=== PATIENT | female | born 1970 | race Caucasian/White ===

== ENCOUNTER → 2016-07-08 | Outpatient (CLI) | payer OTHER ==
[~2016-07-08] MED LIST: APIX5TAB PO; GABA300C5 PO; PERC7.5T13 PO; TRAZ100T4 PO; VIST25CA PO
[2016-07-08 12:10] LABS: MEAN CELL VOLUME 73.3 FL (80.0-100.0); MEAN CORPUSCULAR HGB CONC 31.4 % (32.0-36.0); PLATELET COUNT 227 TH/MM3 (150-450); RED BLOOD COUNT 5.33 MIL/MM3 (4.00-5.30); RED CELL DISTRIBUTION WIDTH 14.8 % (11.6-17.2); WHITE BLOOD COUNT 7.5 TH/MM3 (4.0-11.0)
[2016-07-08 12:12] LABS: REVIEW FLAG FINAL
[2016-07-08 12:20] LABS: INTERNATIONAL NORMALIZED RATIO 0.9 RATIO; PROTHROMBIN TIME - PATIENT 10.3 SEC (9.8-11.6)
[2016-07-08 12:37] LABS: BICARBONATE 29.6 MEQ/L (21.0-32.0); POTASSIUM 4.1 MEQ/L (3.5-5.1)
== END ==
LOC: CPRE 10:59
PROVIDERS: ATTEND Surgery
DX: Z01.812 Encounter for preprocedural laboratory examination (principal); M79.89 Other specified soft tissue disorders
CPT/HCPCS: 36415; 80048; 84703; 85027; 85610

== ENCOUNTER 2016-07-13 09:22 | Observation (INO) | payer OTHER ==
[~2016-07-13] VITALS: Ht 162.6 cm; Wt 85.1 kg
[2016-07-13] MEDS ORDERED: INSULIN HUMAN REGULAR 1,000 UNITS/10 ML VIAL SQ PRN (10:15)
[2016-07-13] MEDS ORDERED: METOPROLOL TARTRATE 25 MG TAB PO PRN (10:15)
[2016-07-13] MEDS ORDERED: LACTATED RINGER'S 1000 ML IV SCH (10:15)
[2016-07-13] MEDS ORDERED: SODIUM CHLORID 0.9% 500 ML IV SCH (10:15)
[2016-07-13] MEDS ORDERED: APIX5TAB PO (10:18)
[2016-07-13] MEDS ORDERED: GABA300C5 PO (10:18)
[2016-07-13] MEDS ORDERED: VIST25CA PO (10:18)
[2016-07-13] MEDS ORDERED: PERC7.5T13 PO (10:18)
[2016-07-13] MEDS ORDERED: TRAZ100T4 PO (10:18)
[2016-07-13 10:29] VITALS: BP 120/75; PULSE 57; RESP 16; TEMP 98.3; O2SAT 97
[2016-07-13] MEDS ORDERED: LACTATED RINGER'S 1000 ML INJ 1,000 ML IV ONE (12:00)
[2016-07-13] MEDS ORDERED: PROPOFOL 200 MG/20 ML AMP IV ONE (12:00)
[2016-07-13] MEDS ORDERED: NEOSTIGMINE 3 MG/3 ML SYR IV ONE (12:00)
[2016-07-13] MEDS ORDERED: PHENYLEPH/NS 1000 MCG/10 ML SYR IV ONE (12:00)
[2016-07-13] MEDS ORDERED: ONDANSETRON HCL 4 MG/2 ML VIAL IV PUSH ONE (12:00)
[2016-07-13] MEDS ORDERED: FAMOTIDINE 20 MG/2 ML VIAL ONE (12:36)
[2016-07-13] MEDS ORDERED: DEXAMETHASONE SOD PHOS 4 MG/ML VIAL ONE (12:36)
[2016-07-13] MEDS ORDERED: MIDAZOLAM HCL 2 MG/2 ML VIAL ONE ×2 (12:36→15:02)
--- NOTE | 2016-07-13 12:36 | HHI.HP ---
History of Present Illness Chief Complaint: R leg/thigh swelling History of Present Illness 46 yo female with h/o DVT who presents c/o intermittent R leg swelling having failed compression. she does not recall where her DVT was/were but she is still on anticoagulation and they were some time ago. She is otherwise healthy. Since I saw her in clinic, there has been no interval change in her medical record that would preclude surgery Past/Family/Social History Past Medical History DVT Past Surgical History RADHA nader tonsillectomy Social History Family History no hypercoagulable state Home Medications Reported Medications Oxycodone-Acetaminophen (Percocet)7.5-325 mg Tab1 Tab PO BID PRN (PAIN) Ref 0 07/13/16 Hydroxyzine Pamoate (Vistaril)25 Mg Cap25 Mg PO HS Ref 0 07/13/16 Gabapentin 300 Mg [id number] Mg PO HS Ref 0 07/13/16 Apixaban (Eliquis)5 Mg Tab5 Mg PO BID #60 TAB Ref 0 07/13/16 Trazodone 100 Mg [id number] Mg PO HS Ref 0 07/13/16 Coded Allergies: No Known Allergies (Unverified , 07/13/16) Review of Systems Constitutional: COMPLAINS OF: Weight gain, DENIES: Chills, Dizziness, Night Sweats Cardiovascular: COMPLAINS OF: Palpitations, Orthopnea, DENIES: Chest pain Gastrointestinal: COMPLAINS OF: Abdominal pain Physical Exam Vitals/I&O Date Time Temp Pulse Resp B/P Pulse Ox O2 Delivery O2 Flow Rate FiO2 07/13/16 10:29 98.3 57 16 120/75 97 Neuro: alert, [place], no focal deficits HEENT: NC/AT Anicteric sclera Neck: no JVD Heart: reg rate, no murmurs Lungs: CTAB Abdomen: soft, NT Vascular: palp pedal pulses Assessment and Plan Plan Outside CT suggestive of IVC occlusion, maybe R iliac occlusion To OR for venogram/PERCUSSION TUNER/stent Consent obtained and pt aware of risks. To OR. Jesus Fisher MD Jul 13, 2016 12:36
[2016-07-13] MEDS ORDERED: BUPIVACAINE/EPINEPHRINE 0.5% PF 30 ML VIAL ONE (12:37)
[2016-07-13] MEDS ORDERED: HEPARIN SODIUM - SQ 10,000 UNITS/ML VIAL ONE (12:37)
[2016-07-13] MEDS ORDERED: ceFAZolin 2 GM PREMIX 50 ML ONE (12:56)
[2016-07-13] MEDS ORDERED: ceFAZolin INJ 1,000 MG VIAL ONE (12:56)
[2016-07-13] MEDS ORDERED: IOHEXOL 300 MG/ML 50 ML BTL (for RAD DIAG) ONE (13:29)
--- NOTE | 2016-07-13 14:57 | HHI.PR ---
Immediate Post Op Note Procedure Date: Jul 13, 2016 Pre Op Diagnosis: R LE swelling, suspected IVC occlusion Post Op Diagnosis: IVC and R iliac vein occlusions Surgeon: Jesus Fisher Freight Router(s): none Procedure: 1. IVCavagram 2. IVUS 3. SYSTEMS SECURITY CONSULTANT of IVC (16mm) 4. SYSTEMS SECURITY CONSULTANT of R iliac vein (12mm) Findings: occluded IVC from mid R EIV to renal veins, able to recanalize and SYSTEMS SECURITY CONSULTANT no opacification of collaterals after recanalization/SYSTEMS SECURITY CONSULTANT Additional Information: 8F sheath removed in OR Complications: none Specimen(s) removed: none Estimated blood loss: 10 mL Anesthesia: General Drains: None Fluids: 400 mL IVF Patient to: PACU Patient Condition: Good Date/Time of Procedure: SEE SURGICAL CARE RECORD Jesus Fisher MD Jul 13, 2016 14:57
[2016-07-13] MEDS ORDERED: ENOXAPARIN SODIUM 80 MG/0.8 ML SYRINGE SQ SCH (15:00)
[2016-07-13] MEDS ORDERED: DO NOT ADM ANY ANTICOAGULANT DRUGS XX PRN (15:00)
[2016-07-13] MEDS ORDERED: fentaNYL CITRATE 250 MCG/5 ML AMP ONE (15:02)
[2016-07-13] MEDS ORDERED: *morphine SULFATE 8 MG/ML PERIprocedure ONLY ONE (15:15)
[2016-07-13] MEDS ORDERED: *HYDROmorphone PF 1 MG VIAL PERIprocedural Use ONLY ONE ×2 (15:22→16:40)
[2016-07-13] MEDS ORDERED: *diphenhydrAMINE HCL 50 MG/ML VIAL PERIprocedural Use ONLY ONE (15:22)
[2016-07-13] MEDS: oxyCODONE/ACETAMINOPHEN 7.5 MG/325 MG TAB PO PRN ×2 (18:00→22:56)
[2016-07-13] MEDS ORDERED: HYDROmorphone HCL PF 1 MG/ML VIAL ONE (19:14)
[2016-07-13 20:00] VITALS: BP 122/69; PULSE 58; RESP 16; TEMP 98; O2SAT 94
[2016-07-13] MEDS: APIXABAN 5 MG TABLET PO SCH (20:23)
[2016-07-13 21:00] VITALS: PULSE 60
[2016-07-13] MEDS ORDERED: traZODone HCL 100 MG TAB PO SCH (21:00)
[2016-07-13] MEDS ORDERED: hydrOXYzine PAMOATE 25 MG CAP PO SCH (21:00)
[2016-07-13] MEDS ORDERED: GABAPENTIN 300 MG CAP PO SCH (21:00)
[2016-07-13 22:00] VITALS: PULSE 68
[2016-07-13 23:00] VITALS: BP 104/64; PULSE 52; RESP 16; TEMP 97.7; O2SAT 94
[2016-07-14] VITALS (9 sets, daily range): BP systolic 103–126; BP diastolic 55–77; PULSE 44–67; RESP 16–18; TEMP 98–98.1; O2SAT 93–95
[2016-07-14] MEDS: oxyCODONE/ACETAMINOPHEN 7.5 MG/325 MG TAB PO PRN ×2 (03:50→10:13)
[2016-07-14] MEDS ORDERED: ONDANSETRON HCL 4 MG/2 ML VIAL IV PUSH ONE (09:15)
--- NOTE | 2016-07-14 09:18 | PD.VS.PN ---
Subjective POD #: 1 Procedure(s): IVC recanalization/BOILERMAKER SHIP of IVC and R CIV Subjective/Hospital Course Doing well overnight. mild abdominal pain but eased off overnight. Main complaint is sore throat Objective Vitals/I&O Date Time Temp Pulse Resp B/P Pulse Ox O2 Delivery O2 Flow Rate FiO2 07/14/16 08:05 98.0 54 18 103/55 95 07/14/16 07:17 50 07/14/16 06:00 45 07/14/16 05:00 52 07/14/16 04:00 67 07/14/16 03:00 54 07/14/16 03:00 98.1 50 16 126/77 93 07/14/16 02:00 47 07/14/16 01:00 44 07/13/16 23:00 97.7 52 16 104/64 94 07/13/16 22:00 68 07/13/16 21:00 60 07/13/16 20:00 58 07/13/16 20:00 98.0 58 16 122/69 94 07/13/16 19:33 97.9 56 12 109/68 98 Nasal Cannula 2 07/13/16 19:15 15 07/13/16 19:01 59 14 111/68 94 Nasal Cannula 2 07/13/16 18:00 57 14 118/75 96 Nasal Cannula 2 07/13/16 17:00 97.0 53 12 135/80 96 Nasal Cannula 2 07/13/16 16:00 50 12 116/72 97 Nasal Cannula 2 07/13/16 15:45 52 15 134/75 98 Nasal Cannula 2 07/13/16 15:30 63 16 133/82 98 Nasal Cannula 2 07/13/16 15:15 62 18 121/72 97 Nasal Cannula 2 07/13/16 15:00 73 21 120/68 95 Nasal Cannula 2 07/13/16 14:51 97.7 81 12 132/71 93 Nasal Cannula 2 07/13/16 10:29 98.3 57 16 120/75 97 Exam: R groin ok - no ecchymoses or hematoma Abdomen soft, NT Assessment and Plan Plan Resume reg diet/meds OOB ad [place] D/C today. Discharge Planning d/c today. F/u 1m with LE venous duplex. I will schedule. Jesus Fisher MD Jul 14, 2016 09:18
--- NOTE | 2016-07-14 09:27 | PD.VS.DC ---
Discharge Summary Admission Date: Jul 13, 2016 at 14:59 Discharge Date: Jul 14, 2016 Admission Diagnosis: (1) Leg swelling Discharge Diagnosis: (1) Leg swelling Status: Chronic Brief History from admission 46 yo female with h/o DVT who presents c/o intermittent R leg swelling having failed compression. she does not recall where her DVT was/were but she is still on anticoagulation and they were some time ago. She is otherwise healthy. Since I saw her in clinic, there has been no interval change in her medical record that would preclude surgery Procedure(s): IVCavagram, IVUS, SEASONAL RETAIL MERCHANDISER of IVC, SEASONAL RETAIL MERCHANDISER of R iliac vein (12mm) Significant Findings GENERAL: A&OX3, NAD, pleasant 46/F SKIN: Warm and dry. right groin intact no R/D/S NECK: Supple, No JVD RESPIRATORY: No accessory muscle use. GASTROINTESTINAL: Abdomen soft, non-tender, nondistended. MUSCULOSKELETAL: No cyanosis, or edema. Pt is post op vascular intervention as noted above with findings of an occluded IVC from mid R EIV to renal veins, during surgery Dr. Fisher was able to recanalize/ It was noted that (No opacification of collaterals after recanalization/SEASONAL RETAIL MERCHANDISER Hospital Course: Pt is post op vascular intervention as noted above with findings of an occluded IVC from mid R EIV to renal veins, during surgery Dr. Fisher was able to recanalize/ It was noted that (No opacification of collaterals after recanalization/SEASONAL RETAIL MERCHANDISER Pt has done well post op without complications and is able to be d/c today Pt will F/U in our OPC in 1M Allergies Coded Allergies Type Severity Reaction Last Updated Verified Morphine Allergy Mild Hives 07/13/16 Yes 07/12///////// 06:00 18:00 06:00 18:00 06:00 18:00 Intake Total 1100 ml 1560 ml Output Total 800 ml 700 ml Balance 300 ml 860 ml Intake Oral 1360 ml IV Total 200 ml Other 1100 ml Output Urine Total 800 ml 700 ml Estimated Blood Loss 0 ml # Voids 2 Procedure Category Date Status Time Lactated Ringer's MED 07/13/16 Complete 1000 Ml Inj (Lr 1000 M 10:15 Sodium Chlorid 0.9% MED 07/13/16 Complete 500 Ml Inj (Ns 500 M 10:15 Insulin Human Regular MED 07/13/16 Complete Inj (Novolin R Inj 10:15 Metoprolol Tartrate MED 07/13/16 Complete (Lopressor) 10:15 Famotidine Inj MED 07/13/16 Complete (Pepcid Inj) 12:36 Midazolam Inj (Versed MED 07/13/16 Complete Inj) 12:36 Dexamethasone Inj MED 07/13/16 Complete (Decadron Inj) 12:36 Bupivacaine-Epi Pf MED 07/13/16 Complete 0.5% Inj (Sensorcaine 12:37 Heparin Inj (Heparin MED 07/13/16 Complete Inj) 12:37 Cefazolin Inj (Ancef MED 07/13/16 Complete Inj) 12:56 Cefazolin 2 Gm Premix MED 07/13/16 Complete (Ancef 2 Gm Premix 12:56 Iohexol 300 Inj MED 07/13/16 Complete (Omnipaque 300 Inj) 13:29 Place In Observation ADMITTING 07/13/16 Transmitted Activity Bed Rest LENNY 07/13/16 In Process 14:57 Diet Heart Healthy DIET 07/13/16 Transmitted Dinner Resp Oxygen Latrell C RSP 07/13/16 Logged Titrat 1-4 L Vital Signs (Adult) LENNY 07/13/16 In Process 14:57 ^ Notify Dr: Jose LENNY 07/13/16 In Process 14:57 Apixaban (Eliquis) MED 07/13/16 In Process 21:00 Gabapentin (Neurontin) MED 07/13/16 In Process 21:00 Hydroxyzine Pamoate MED 07/13/16 In Process (Vistaril) 21:00 Oxycodone-Acetamin MED 07/13/16 In Process 7.5-325 Mg (Percocet 15:00 Trazodone (Desyrel) MED 07/13/16 In Process 21:00 Midazolam Inj (Versed MED 07/13/16 Complete Inj) 15:02 Fentanyl Inj MED 07/13/16 Complete (Fentanyl Inj) 15:02 *Morphine Inj MED 07/13/16 Complete (*Morphine Inj 15:15 *Diphenhydramine Inj MED 07/13/16 Complete (*Benadryl Inj Terri 15:22 *Hydromorphone Pf Inj MED 07/13/16 Complete (*Dilaudid Pf Inj 15:22 Misc Nursing MED 07/13/16 In Process Information 15:00 Sds Pre Op Care [facility] 07/13/16 Complete *Hydromorphone Pf Inj MED 07/13/16 Complete (*Dilaudid Pf Inj 16:40 Hydromorphone Pf Inj MED 07/13/16 Complete (Dilaudid Pf Inj) 19:14 Class [facility] Complete MIN General/Pacu [facility] 07/13/16 Complete Post Anesthesia Oxygen [facility] 07/13/16 Complete Pacu Cpcu Holding [facility] 07/13/16 Complete Hourly ^ Anticoagulant Alert LENNY 07/13/16 In Process Resp Oxygen Latrell C RSP 07/13/16 Logged Titrat 1-4 L Ondansetron Inj MED 07/14/16 Logged (Zofran Inj) 09:15 Attending Discharge DISCHARGE 07/14/16 Transmitted Order Vital Signs Date Time Temp Pulse Resp B/P Pulse Ox O2 Delivery O2 Flow Rate FiO2 07/14/16 08:05 98.0 54 18 103/55 95 07/14/16 07:17 50 07/14/16 06:00 45 07/14/16 05:00 52 07/14/16 04:00 67 07/14/16 03:00 54 07/14/16 03:00 98.1 50 16 126/77 93 07/14/16 02:00 47 07/14/16 01:00 44 07/13/16 23:00 97.7 52 16 104/64 94 07/13/16 22:00 68 07/13/16 21:00 60 07/13/16 20:00 58 07/13/16 20:00 98.0 58 16 122/69 94 07/13/16 19:33 97.9 56 12 109/68 98 Nasal Cannula 2 07/13/16 19:15 15 07/13/16 19:01 59 14 111/68 94 Nasal Cannula 2 07/13/16 18:00 57 14 118/75 96 Nasal Cannula 2 07/13/16 17:00 97.0 53 12 135/80 96 Nasal Cannula 2 07/13/16 16:00 50 12 116/72 97 Nasal Cannula 2 07/13/16 15:45 52 15 134/75 98 Nasal Cannula 2 07/13/16 15:30 63 16 133/82 98 Nasal Cannula 2 07/13/16 15:15 62 18 121/72 97 Nasal Cannula 2 07/13/16 15:00 73 21 120/68 95 Nasal Cannula 2 07/13/16 14:51 97.7 81 12 132/71 93 Nasal Cannula 2 07/13/16 10:29 98.3 57 16 120/75 97 Discharge Condition: Good Discharge Disposition: Discharge Home Discharge Instructions: Follow up in our OPC at scheduled appointment time 08/14/16 at 1000 Call the office for ANY questions or concerns Report any new onset fever or increased swelling to OSMANY VELARDE [facility] [phone] Any questions or concerns: Call [facility] Heart and Vascular Surgery at [facility] [phone] Tami Blanco Jul 14, 2016 09:27
[2016-07-14] MEDS: APIXABAN 5 MG TABLET PO SCH (10:12)
--- NOTE | 2016-07-15 12:07 | MP ---
cc: JESUS FISHER MD DATE OF SURGERY: 07/13/2016 PREOPERATIVE DIAGNOSIS Right lower extremity swelling, IVC and iliac vein occlusion. POSTOPERATIVE DIAGNOSIS Right lower extremity swelling, IVC and iliac vein occlusion. PROCEDURE 1. Inferior vena cavogram. 2. Intravascular ultrasound of the IVC and iliac vein. 3. Angioplasty of IVC to 16 mm. 4. Angioplasty of right iliac vein to 12 mm. ATTENDING SURGEON Jesus Fisher RESIDENT SURGEON None. ANESTHESIA General. INDICATIONS Mrs. Pedersen is a 46-year-old female with a history of right lower extremity swelling. On preoperative CT scan there was suggestion of an IVC occlusion. She is taken to the operating room for angiographic evaluation and treatment. There is no prior imaging available for my review. DESCRIPTION OF PROCEDURE Informed consent was obtained from the patient. She was taken to the operating room and placed supine on the operating table. An appropriate timeout was taken to ensure the patient's identity, the operative site and planned procedure. The administration of two grams of Kefzol was initiated prior to skin incision and will be discontinued after single preoperative dose. Everyone in the room agreed with the timeout and we proceeded. Her right groin was prepped and draped. A 21-gauge micropuncture needle was used to access the right common femoral vein. This was exchanged using Seldinger technique for a micropuncture sheath through which a 0.035 Glidewire was introduced. The micropuncture sheath was exchanged for a 5 Latvian sheath and a Kumpe catheter was placed over the wire and through the sheath and a vena cavogram was obtained. The Kumpe catheter and Glidewire were then used to navigate into the suprarenal IVC. The Glidewire was exchanged for a Friedman wire. The Kumpe catheter was removed. The 5 Latvian sheath was removed and an 8 Latvian, 25 cm sheath was introduced. Intravascular ultrasound was then placed over the wire and through the sheath and images were obtained. The intravascular ultrasound showed the patient had a patent suprarenal IVC with renal veins with a very sclerotic IVC, common iliac vein and central external iliac vein. The IVUS catheter is removed and the entire area was angioplastied with 8 mm and 12 mm balloons. Completion venogram showed improvement but still prominence of collaterals. The IVUS catheter was reintroduced and there were several areas at the peripheral aspect that were still sclerotic. The IVUS catheter was removed and a 16 mm balloon was used to balloon the IVC, and a 12 mm balloon used to balloon the common iliac and external iliac veins. Completion venogram showed excellent result with no opacification of collateral network. The wire, catheter and sheath were removed and pressure was held for hemostasis. There were no complications. I was present and scrubbed and performed the entire procedure. MD ROLANDO Hoffman/JULIANNE /3:24 PM /11:48 AM MTDD
== END 2016-07-14 10:30 | disposition home or self-care (01) ==
LOC: HCVO 09:22 → EDUNIT# 11:30 → HSDI 14:59 → HCIN 19:50
PROVIDERS: ADMIT Surgery; ATTEND Surgery
DX: I82.421 Acute embolism and thrombosis of right iliac vein (principal); I82.220 Acute embolism and thrombosis of inferior vena cava
CPT/HCPCS: 00770; 36005; 37248; 37249; 75736; 76937; C1725; C1753; C1769; G0378; J0690; J1100; J1170; J1200; J1644; J2250; J2270; J2370; J2405; J2710; J3010; J7120; Q0177; Q9967

== ENCOUNTER 2016-07-20 14:42 | Emergency (ER) | payer OTHER ==
[2016-07-20 14:45] VITALS: BP 138/85; RESP 14; TEMP 97.9; O2SAT 99
[2016-07-20 16:06] VITALS: PULSE 64
--- NOTE | 2016-07-20 16:09 | PD ---
Physical Exam Date Seen by Provider: Jul 20, 2016 Time Seen by Provider: 16:06 Narrative 46 YOWF C/O R LEG PAIN S/P AAA ANGIOPLASTY AND POSSIBLE STENT ON WEDNESDAY. NO CP OR SOB. ON [facility] V[facility]. AWAITING BED PLACEMENT Data Data Last Documented VS Vital Signs Date Time Temp Pulse Resp B/P Pulse Ox O2 Delivery O2 Flow Rate FiO2 07/20/16 14:45 97.9 14 138/85 99 Room Air [facility] Medical Record Reviewed: Yes Supervised Visit with ELIZABETH: Yes Nikolas Stanley Jul 20, 2016 16:09
[2016-07-20 19:05] VITALS: BP 137/91; PULSE 79; RESP 16; O2SAT 100
--- NOTE | 2016-07-20 19:13 | PD ---
HPI Chief Complaint: Medical Clearance Time Seen by Provider: 19:13 Travel History International Travel<30 days: No Contact w/Intl Traveler<30days: No Traveled to known affect area: No History of Present Illness HPI 46-year-old female with a history of right lower extremity DVT, chronic back pain presents to the emergency department for evaluation of abdominal pain for 2 days. The patient states that she's had intermittent sharp abdominal pain in the periumbilical region for the past 2 days. States that the pain is associated with nausea but no vomiting. States that she is concerned as she had a recent surgery performed by Dr. Fisher due to occlusion of her IVC. States that the surgery was 6 days ago and she was doing well with no pain until the last 2 days. Denies any fever, chills, diarrhea, constipation, bloody stool, chest pain, shortness of breath. Prior abdominal surgeries include hysterectomy and cholecystectomy. No other complaints. PFSH Past Medical History Hx Anticoagulant Therapy: Yes (eloquis ) Anxiety: Yes Cancer: Yes (OVARIAN, CERVIX, UTERINE) Cardiovascular Problems: Yes (htn) Diabetes: No Endocrine: No Genitourinary: No Hepatitis: No Hiatal Hernia: No Hypertension: Yes Immune Disorder: No Medical other: Yes (DVT) Musculoskeletal: Yes (OA) Neurologic: Yes (DDD) Psychiatric: Yes (ANXIETY) Reproductive: No Respiratory: No Thyroid Disease: No ?: Not Past Surgical History Abdominal Surgery: Yes (CHOLECYSTECTOMY) AICD: No Body Medical Devices: NONE PER PT Cardiac Surgery: No Ear Surgery: No Endocrine Surgery: No Eye Surgery: No Gynecologic Surgery: Yes (TOTAL HYSTERECTOMY 2009,2010 (2 SEPARATE PROCEDURES)) Hysterectomy: Yes Joint Replacement: No Oral Surgery: Yes (T/A) Pacemaker: No Thoracic Surgery: No Other Surgery: Yes Social History Alcohol Use: No Tobacco Use: Yes Substance Use: No Allergies-Medications (Allergen,Severity, Reaction): Coded Allergies: Morphine (Verified Allergy, Mild, Hives, 07/20/16) itching Reported Meds & Prescriptions Reported Meds & Active Scripts Active Reported Percocet (Oxycodone-Acetaminophen) 7.5-325 mg Tab 1 Tab PO BID PRN Vistaril (Hydroxyzine Pamoate) 25 Mg Cap 25 Mg PO HS Gabapentin 300 Mg Cap 300 Mg PO HS Eliquis (Apixaban) 5 Mg Tab 5 Mg PO BID Trazodone (Trazodone HCl) 100 Mg Tab 100 Mg PO HS Review of Systems Except as stated in HPI: all other systems reviewed are Neg Physical Exam Narrative GENERAL: Well-nourished and well-developed female patient in no acute distress. SKIN: Warm and dry. HEAD: Normocephalic and atraumatic. EYES: No injection, drainage, or hyphema noted. PERRLA. EOMI. ENT: No nasal drainage noted. Oropharynx is clear. NECK: Supple and the trachea is midline. CARDIOVASCULAR: Regular rate and rhythm. RESPIRATORY: Breath sounds are equal bilaterally with no accessory muscle use, wheezing, rhonchi, or crackles. GASTROINTESTINAL: Periumbilical tenderness to palpation. Negative McBurney's point. Negative Erwin sign. No rebound tenderness or guarding. Abdomen is soft and nondistended. Right groin with 2 pinpoint healing sites of catheter insertion from the recent surgery but no hematoma, swelling, erythema. MUSCULOSKELETAL: No obvious deformities, swelling, cyanosis, or ecchymosis is present throughout the upper and lower extremities. Patient has full range of motion without any signs of neurovascular compromise. NEUROLOGICAL: Awake, alert, and oriented. Normal speech and gait. Cranial nerves are grossly intact. Data Data Last Documented VS Vital Signs Date Time Temp Pulse Resp B/P Pulse Ox O2 Delivery O2 Flow Rate FiO2 07/20/16 19:48 16 07/20/16 19:05 79 137/91 100 Room Air 07/20/16 14:45 97.9 Orders Complete Blood Count With Diff (07/20/16 19:17) Comprehensive Metabolic Panel (07/20/16 19:17) Lipase (07/20/16 19:17) Prothrombin Time / Inr (Pt) (07/20/16 19:17) Act Partial Throm Time (Ptt) (07/20/16 19:17) Ct Abd/Pel W Iv Contrast(Rout) (07/20/16 19:17) Iv Access Insert/Monitor (07/20/16 19:17) Ecg Monitoring (07/20/16 19:17) Oximetry (07/20/16 19:17) Sodium Chlor 0.9% 1000 Ml Inj (Ns 1000 M (07/20/16 19:17) Sodium Chloride 0.9% Flush (Ns Flush) (07/20/16 19:30) Ed Urine Pregnancytest Poc (07/20/16 19:17) Hydromorphone Pf Inj (Dilaudid Pf Inj) (07/20/16 19:30) Ondansetron Inj (Zofran Inj) (07/20/16 19:30) Hydromorphone Pf Inj (Dilaudid Pf Inj) (07/20/16 21:45) Iohexol 350 Inj (Omnipaque 350 Inj) (07/20/16 22:03) Labs Laboratory Tests Test 07/20/16 19:45 White Blood Count 11.9 TH/MM3 Red Blood Count 5.69 MIL/MM3 Hemoglobin 13.3 GM/DL Hematocrit 41.3 % Mean Corpuscular Volume 72.6 FL Mean Corpuscular Hemoglobin 23.4 PG Mean Corpuscular Hemoglobin 32.2 % Concent Red Cell Distribution Width 15.0 % Platelet Count 269 TH/MM3 Mean Platelet Volume 9.2 FL Neutrophils (%) (Auto) 63.9 % Lymphocytes (%) (Auto) 27.1 % Monocytes (%) (Auto) 5.9 % Eosinophils (%) (Auto) 2.5 % Basophils (%) (Auto) 0.6 % Neutrophils # (Auto) 7.6 TH/MM3 Lymphocytes # (Auto) 3.2 TH/MM3 Monocytes # (Auto) 0.7 TH/MM3 Eosinophils # (Auto) 0.3 TH/MM3 Basophils # (Auto) 0.1 TH/MM3 CBC Comment AUTO DIFF Differential Comment AUTO DIFF CONFIRMED Platelet Estimate NORMAL Platelet Morphology Comment NORMAL Ovalocytes 1+ Prothrombin Time 10.1 SEC Prothromb Time International 0.9 RATIO Ratio Activated Partial 24.5 SEC Thromboplast Time Sodium Level 141 MEQ/L Potassium Level 3.9 MEQ/L Chloride Level 103 MEQ/L Carbon Dioxide Level 27.3 MEQ/L Anion Gap 11 MEQ/L Blood Urea Nitrogen 20 MG/DL Creatinine 1.12 MG/DL Estimat Glomerular Filtration 52 ML/MIN Rate Random Glucose 108 MG/DL Calcium Level 9.5 MG/DL Total Bilirubin 0.2 MG/DL Aspartate Amino Transf 33 U/L (AST/SGOT) Alanine Aminotransferase 54 U/L (ALT/SGPT) Alkaline Phosphatase 107 U/L Total Protein 7.7 GM/DL Albumin 3.8 GM/DL Lipase 97 U/L [facility] Medical Decision Making Medical Screen Exam Complete: Yes Emergency Medical Condition: Yes Differential Diagnosis Colitis versus diverticulitis versus postsurgical complication versus infection Narrative Course 46-year-old female presents to the emergency department for evaluation of periumbilical abdominal pain for 2 days. Patient had angioplasty and stent placement for IVC and right iliac vein occlusions performed 6 days ago. Patient is afebrile, vital signs are stable. She has some tenderness to the periumbilical region but no peritoneal signs. IV access is obtained, labs were drawn and sent. Patient is placed on cardiac telemetry and pulse oximetry monitoring. CT of the abdomen and pelvis has been ordered and is pending. ED urine test is negative. CBC shows slightly elevated white blood cell count of 11.9, otherwise unremarkable. CMP shows elevated creatinine of 1.12, BUN 20, GFR 52. Consistent with previous lab values. Coags are unremarkable. CT of the abdomen and pelvis with IV contrast shows right kidney that appears smaller with areas of scarring but is otherwise unremarkable. Patient is reporting some improvement of symptoms after receiving pain medication. Discussed all results with the patient and family. Labs and imaging are all unremarkable. Etiology of the patient's abdominal pain is unclear however does not appear to be an emergent process. She is stable for discharge to home. I discussed the case with my attending physician Dr. Goldstein who is aware of the patients history, physical examination findings, and treatment plan. Physician Communication Physician Communication I spoke with Dr. Fisher vascular surgeon who agrees with performing CT of the abdomen and pelvis, no further recommendations at this time. Diagnosis Primary Impression: Abdominal pain Qualified Code: R10.33 - Periumbilical abdominal pain Referrals: Primary Care Physician Patient Instructions: Abdominal Pain (ED), General Instructions Additional Instructions: Follow-up with your Primary Care Physician. Return to the ED for any acute worsening of symptoms. Med/Other Pt SpecificInfo: No Change to Meds Disposition: 01 DISCHARGE HOME Condition: Stable Marli Sanches Jul 20, 2016 19:13
[2016-07-20] MEDS ORDERED: SODIUM CHLOR 0.9% 1000 ML INJ 1,000 ML IV SCH (19:17)
[2016-07-20] MEDS ORDERED: HYDROmorphone HCL PF 1 MG/ML VIAL IV PUSH ONE ×2 (19:30→21:45)
[2016-07-20] MEDS ORDERED: ONDANSETRON HCL 4 MG/2 ML VIAL IV PUSH ONE (19:30)
[2016-07-20] MEDS ORDERED: SODIUM CHLORIDE 0.9% FLUSH 10 ML FLUSH IV FLUSH PRN (19:30)
[2016-07-20 19:48] VITALS: RESP 16
[2016-07-20 20:25] LABS: AUTOMATED NEUTROPHIL # 7.6 TH/MM3 (1.8-7.7); BASOPHIL # 0.1 TH/MM3 (0-0.2); BASOPHIL % 0.6 % (0.0-2.0); EOSINOPHIL # 0.3 TH/MM3 (0-0.4); EOSINOPHIL % 2.5 % (0.0-4.0); HEMATOCRIT 41.3 % (35.0-46.0); LYMPH % 27.1 % (9.0-44.0); LYMPHOCYTE # 3.2 TH/MM3 (1.0-4.8); MEAN CELL VOLUME 72.6 FL (80.0-100.0); MEAN CORPUSCULAR HEMOGLOBIN 23.4 PG (27.0-34.0); MEAN CORPUSCULAR HGB CONC 32.2 % (32.0-36.0); MONO % 5.9 % (0.0-8.0); NEUT % 63.9 % (16.0-70.0); PLATELET COUNT 269 TH/MM3 (150-450); RED BLOOD COUNT 5.69 MIL/MM3 (4.00-5.30); WHITE BLOOD COUNT 11.9 TH/MM3 (4.0-11.0)
[2016-07-20 20:27] LABS: HEMO FLAGS AUTO DIFF
[2016-07-20 20:43] LABS: APTT (PATIENT) 24.5 SEC (24.3-30.1); INTERNATIONAL NORMALIZED RATIO 0.9 RATIO; PROTHROMBIN TIME - PATIENT 10.1 SEC (9.8-11.6)
[2016-07-20 20:46] LABS: ANION GAP 11 MEQ/L (5-15); AST (GOT) 33 U/L (15-37); BICARBONATE 27.3 MEQ/L (21.0-32.0); BLOOD UREA NITROGEN 20 MG/DL (7-18); CHLORIDE 103 MEQ/L (98-107); GLOMERULAR FILTRATION RATE 52 ML/MIN (>89); POTASSIUM 3.9 MEQ/L (3.5-5.1); SODIUM (NA) 141 MEQ/L (136-145)
[2016-07-20 20:49] LABS: ALKALINE PHOSPHATASE 107 U/L (45-117); ALT (GPT) 54 U/L (10-53); TOTAL BILIRUBIN ADULT 0.2 MG/DL (0.2-1.0)
[2016-07-20 20:58] LABS: OVALOCYTES 1+ (NORMAL); PLATELET ESTIMATE SMEAR NORMAL (NORMAL); PLATELET MORPHOLOGY NORMAL (NORMAL); SCAN/DIFF AUTO DIFF CONFIRMED
[2016-07-20] MEDS ORDERED: IOHEXOL 350 MG/ML 10 ML VIAL (for RAD DIAG) IV ONE (22:03)
--- NOTE | 2016-07-20 22:18 | RADRPT ---
EXAM DATE/TIME: 07/20/2016 22:00 [place] COMPARISON: No previous studies available for comparison. INDICATIONS : Hematoma rt. groin post-angioplasty. IV CONTRAST: 100 cc Omnipaque 350 (iohexol) IV ORAL CONTRAST: No oral contrast ingested. RADIATION DOSE: 12.10 CTDIvol (mGy) MEDICAL HISTORY : Hypertension. SURGICAL HISTORY : Cholecystectomy. Hysterectomy.Angioplasty. ENCOUNTER: Initial ACUITY: 1 day PAIN SCALE: 6/10 LOCATION: Right groin. TECHNIQUE: Volumetric scanning of the abdomen and pelvis was performed. Using automated exposure control and ad justment of the mA and/or kV according to patient size, radiation dose was kept as low as reasonably achievable to obtain optimal diagnostic quality images. FINDINGS: CT Abdomen: The liver, spleen, pancreas, adrenals are unremarkable. There is no evidence for any appr eciable pathological adenopathy, free fluid, or bowel obstruction. There is evidence for prior nader cystectomy. The right kidney measures 6.2 cm in craniocaudal dimension in the left side measures 9.2 cm. There are areas of scarring in the right kidney. CT pelvis: There is no evidence for mass, abscess formation, or any significant adenopathy within the pelvis. There is no evidence for hematoma in the patient's groins on either side. CONCLUSION: The right kidney appears smaller with areas of scarring, otherwise unremarkable. Isaiah Aguillon MD on July 20, 2016 at 22:13 Board Certified Radiologist. This report was verified electronically.
== END 2016-07-20 22:42 | disposition home or self-care (01) ==
LOC: NEPC 14:42
DX: R10.33 Periumbilical pain (principal); R11.0 Nausea; I10 Essential (primary) hypertension; Z72.0 Tobacco use
CPT/HCPCS: 74177; 80053; 83690; 84703; 85025; 85610; 85730; 96374; 96375; 96376; 99284; J1170; J2405; J7030; Q9967